=== PATIENT | male | born 1990 | race African-American/Black ===

== ENCOUNTER 2022-08-20 18:55 | Emergency (ER) | payer SELFPAY ==
[2022-08-20 19:10] VITALS: BP 116/62; PULSE 84; RESP 15; TEMP 98.7; BMI 26.6
[2022-08-20] MEDS ORDERED: IBUPROFEN 600 MG TABLET (FP) PO ONE ×2 (22:51→22:53)
== END 2022-08-20 23:02 | disposition home or self-care (01) ==
LOC: FER 18:55
DX: S39.92XA Unspecified injury of lower back, initial encounter (principal); S20.212A Contusion of left front wall of thorax, initial encounter; V03.10XA Pedestrian on foot injured in collision with car, pick-up truck or van in traffic accident, initial encounter
CPT/HCPCS: 71101-TC-LT-FY; 72100-TC-FY; 99284-25